=== PATIENT | male | born 1955 | race Caucasian/White ===

== ENCOUNTER 2018-03-14 15:14 | Emergency (ER) | payer OTHER ==
[2018-03-14 15:24] VITALS: RESP 20; O2SAT 97
--- NOTE | 2018-03-14 15:40 | C.PDOC ---
History Of Present Illness 63 yr old male w/ hx of HTN, HLD p/w L shoulder pain x2 weeks. Throbbing, L shoulder, radiates to his L hand. No numbness or tingling. No CP or SOB. No fall or trauma. First time occurence of pain. No rash. No headache. No other complaints. No other complaints. Time Seen by Provider: 03/14/18 15:40 Chief Complaint (Nursing): Upper Extremity Problem/Injury Past Medical History Vital Signs: Last Vital Signs Temp 97.3 F L 03/14/18 15:22 Pulse 80 03/14/18 15:22 Resp 20 03/14/18 15:22 BP 154/91 H 03/14/18 15:22 Pulse Ox 97 03/14/18 15:22 - Medical History PMH: HTN, Hypercholesterolemia Family History: States: Unknown Family Hx - Social History Hx Alcohol Use: No Hx Substance Use: No - Immunization History Hx Tetanus Toxoid Vaccination: No Hx Influenza Vaccination: No Hx Pneumococcal Vaccination: No Review Of Systems Constitutional: Negative for: Fever, Chills, Sweats, Weakness, Malaise Eyes: Negative for: Pain, Vision Change, Eyelid Inflammation, Redness ENT: Negative for: Ear Pain, Ear Discharge, Nose Pain, Nose Congestion, Mouth Pain Cardiovascular: Negative for: Chest Pain, Palpitations, Orthopnea, Edema Respiratory: Negative for: Cough, Shortness of Breath, SOB with Excertion Gastrointestinal: Negative for: Nausea, Vomiting, Abdominal Pain, Constipation, Hematochezia, Hematemesis Genitourinary: Negative for: Dysuria, Frequency Musculoskeletal: Positive for: Shoulder Pain (L). Negative for: Neck Pain, Back Pain, Hand Pain Skin: Negative for: Rash, Lesions, Jaundice Neurological: Negative for: Weakness, Numbness, Altered Mental Status, Headache Physical Exam - Physical Exam Appears: Well, Non-toxic, No Acute Distress Skin: Normal Color, Warm, No Diaphoretic Head: Atraumatic, Normacephalic Eye(s): bilateral: Normal Inspection, PERRL, EOMI Ear(s): Bilateral: Normal Nose: Normal, No Flaring, No Discharge Oral Mucosa: Moist, Dry Tongue: Normal Appearing Lips: Normal Appearing Teeth: Normal Dentition Gingiva: Normal Appearing Throat: Normal, No Erythema, No Exudate Neck: Normal, Normal ROM, No Midline Cervical Tenderness, No Paracervical Tenderness, Supple Chest: Symmetrical Cardiovascular: Rhythm Regular Respiratory: Normal Breath Sounds Gastrointestinal/Abdominal: Normal Exam Back: Normal Inspection, No CVA Tenderness Extremity: Normal ROM, Tenderness (L lateral shoulder), No Calf Tenderness, No Capillary Refill, No Deformity, No Swelling, Other (good n/v status to b/l UE) Extremity: Bilateral: Atraumatic, Hips Non-Tender, Normal Color And Temperature, Normal ROM Pulses: Left Dorsalis Pedis: Normal, Right Dorsalis Pedis: Normal Neurological/Psych: Oriented x3, Normal Speech, Normal Cognition, Normal Cranial Nerves, No Cerebellar Signs Gait: Steady Extremity: Right: No Drift, Left: No Drift, Upper: No Drift, Lower: No Drift ED Course And Treatment O2 Sat by Pulse Oximetry: 97 Medical Decision Making Medical Decision Makin yr old male w/ hx of HTN, HLD p/w L shoulder pain. No CP or SOB. No diaphoresis. No fall or trauma. Well appearing. Will rx with pain meds, seek xray and reassess 1622 pain resolved xray unremarkable has motrin at home remains n/v intact, clear for d/c home. pt agreeable Disposition - Disposition Disposition Time: 16:22 Condition: GOOD Instructions: Muscle Strain Forms: [facility] ([place]rainian) - Clinical Impression Clinical Impression: Left shoulder strain
--- NOTE | 2018-03-14 16:30 | RAD ---
Date of service: 03/14/2018 PROCEDURE: Radiographs of the Left Shoulder HISTORY: L sholder pain COMPARISON: No prior. FINDINGS: BONES: Normal. No fracture. JOINTS: Normal. Glenohumeral and acromioclavicular joints preserved. No osteoarthritis. SOFT TISSUES: Normal. OTHER FINDINGS: None. IMPRESSION: No significant or acute findings to account for/ related to the clinical presentation. Concordant results with the preliminary interpretation rendered by the emergency department physician procedure.
[2018-03-14 16:37] VITALS: BP 140/90; PULSE 84; TEMP 97
== END 2018-03-14 16:35 | disposition home or self-care (01) ==
LOC: C.ER 15:14
DX: S46.912A Strain of unspecified muscle, fascia and tendon at shoulder and upper arm level, left arm, initial encounter (principal); X58.XXXA Exposure to other specified factors, initial encounter